=== PATIENT | male | born 1980 | race Two or more races ===

== ENCOUNTER 2025-07-09 15:21 | Emergency (ER) | payer MEDICAID, OTHER ==
[~2025-07-09] VITALS: Ht 170.2 cm; Wt 65.0 kg
--- NOTE | 2025-07-09 16:19 | ED.PDOC ---
History of Present Illness HPI Comments 44-year-old male, with a history of CAD, HTN and UT status post angiogram, presents with chief complaint of right-sided chest pain upon inspiration x2 days. Denies any shortness of breath, nausea, vomiting, or further acute symptoms. No endorsed recent ailments, injuries, stressors, strenuous activities, or further pertinent history or events. Chief Complaint: Chest Pain Time Seen by MD: 15:50 Reviewed Notes: Nurses Notes, Medications, Allergies Allergies: Coded Allergies: NO KNOWN ALLERGIES (Unverified , 07/09/25) Information Source: Patient Mode of Arrival: Ambulatory Severity: Moderate Past Medical History PAST MEDICAL HISTORY: CAD, HTN, UT Surgical History (Other): Angiogram Family History Family History: Unknown Social History Smoker: Non-Smoker Alcohol: Denies ETOH Use Drugs: Denies Drug Use Lives In: Home All Other Systems: Reviewed and Negative (Comprehensive review of systems are negative unless otherwise stated in HPI) Physical Exam General Appearance: Moderate Distress HEENT: Normal ENT Inspection, Pharynx Normal, TMs Normal Neck: Full Range of Motion, Non-Tender, Normal, Normal Inspection Respiratory: Chest Non-Tender, Lungs Clear, No Accessory Muscle Use, No Respiratory Distress, Normal Breath Sounds Cardiovascular: No Edema, No JVD, No Murmur, No Gallop, Normal Peripheral Pulses, Regular Rate/Rhythm Breast Exam: Deferred Gastrointestinal: No Organomegaly, Non Tender, No Pulsatile Mass, Normal Bowel Sounds, Soft Genitalia: Deferred Pelvic: Deferred Rectal: Deferred Extremities: No calf tenderness, Normal capillary refill, Normal inspection, Normal range of motion, Non-tender, No pedal edema Musculoskeletal : Apperance: Normal Neurologic: Alert, seedling puller II-XII nml as Tested, No Motor Deficits, Normal Affect, Normal Mood, No Sensory Deficits Cerebellar Function: Normal Reflexes: Normal Skin: Dry, Normal Color, Warm Peripheral Pulses: 3+ Radial (R), 3+ Radial (L) Lymphatic: No Adenopathy Was a procedure done? Was a procedure done?: No EKG EKG #1: Pulse Rate (adult): 80 [place]: Normal Cardiac Rhythm: NSR Block: None Hypertrophy: None ST: Normal EKG #2: Pulse Rate (adult): 77 [place]: Normal Cardiac Rhythm: NSR Block: None Hypertrophy: None ST: Normal Differential Dx Considerations may include: Mi, PE, ACS, CAD, URI, PNA, angina, anxiety, gastritis, among others X-Ray, Labs, Meds, VS Vital Signs Date Time Temp Pulse Resp B/P (MAP) Pulse Ox O2 Delivery O2 Flow Rate FiO2 07/09/25 16:41 77 07/09/25 16:31 77 07/09/25 16:19 80 07/09/25 15:30 80 07/09/25 15:23 97.4 79 18 146/107 98 97.4 Lab Test 07/09/25 16:23 Range/Units White Blood Count 6.9 4.4-10.8 10^3/uL Red Blood Count 5.30 4.5-5.90 10^6/uL Hemoglobin 16.0 13.5-17.5 g/dL Hematocrit 47.1 41.0-53.0 % Mean Corpuscular Volume 88.9 80.0-100.0 fL Mean Corpuscular Hemoglobin 30.2 28.0-32.0 pg Mean Corpuscular Hemoglobin Concent 34.0 32.0-36.0 g/dL Red Cell Distribution Width 13.5 11.8-14.3 % Platelet Count 301 140-450 10^3/uL Mean Platelet Volume 6.8 L 6.9-10.8 fL Neutrophils (%) (Auto) 71.7 37.0-80.0 % Lymphocytes (%) (Auto) 19.2 10.0-50.0 % Monocytes (%) (Auto) 7.5 0.0-12.0 % Eosinophils (%) (Auto) 0.8 0.0-7.0 % Basophils (%) (Auto) 0.8 0.0-2.0 % Neutrophils # (Auto) 4.9 1.6-8.6 10 ^3/uL Lymphocytes # (Auto) 1.3 0.4-5.4 10 ^3/uL Monocytes # (Auto) 0.5 0-1.3 10 ^3/uL Eosinophils # (Auto) 0.1 0-0.8 10 ^3/uL Basophils # (Auto) 0.1 0-0.2 10 ^3/uL Nucleated Red Blood Cells 0.0 % Sodium Level 144 136-145 mmol/L Potassium Level 4.0 3.5-5.1 mmol/L Chloride Level 106 98-107 mmol/L Carbon Dioxide Level 29 20-31 mmol/L Anion Gap 9 5-15 Blood Urea Nitrogen 7 L 9-23 mg/dL Creatinine 1.15 0.700-1.30 mg/dL Glomerular Filtration Rate Calc 79 >90 mL/min BUN/Creatinine Ratio 6.1 L 10.0-20.0 Serum Glucose 98 74-106 mg/dL Calcium Level 9.2 8.7-10.4 mg/dL Troponin I High Sensitivity < 3 L </=54 ng/L B-Type Natriuretic Peptide 2.62 0-100 pg/mL Patient alert. Complaining of chest pain. Vitals stable. Answering questions. History of coronary artery disease. EKG reviewed does not show any acute changes. Cardiac marker within normal limits. Continues to have pain. Was given aspirin. Was given nitro. Explained to the patient. Continue monitoring. Time of 1ST Reevaluation: 16:20 Reevaluation 1ST: Unchanged Patient Education/Counseling: Diagnosis, Treatment, Need For Follow Up Family Education/Counseling: No Family Present SEPSIS Sepsis Screen Date sepsis recognized/suspect: Jul 09, 2025 Time Sepsis recognized/suspect: 1523 Recent Procedure: No On Antibiotic Therapy: No Respiratory Rate >20: No Heart Rate >90: No Temp<36 C (96.8 F) or >38.3 C: No SBP <90 or MAP <65 mmHG: No New Acute Mental Status Change: No Is the patient on CPAP, BIPAP,: No Physician Orders Chest Portable (07/09/25 15:57) Troponin-I Hs (07/09/25 15:25) Electrocardigram (07/09/25 15:25) Troponin-I Hs (07/09/25 16:25) Electrocardigram (07/09/25 16:25) Electrocardigram (07/09/25 18:25) Vital Signs Date Time Temp Pulse Resp B/P (MAP) Pulse Ox O2 Delivery O2 Flow Rate FiO2 07/09/25 16:41 77 07/09/25 16:31 77 07/09/25 16:19 80 07/09/25 15:30 80 07/09/25 15:23 97.4 79 18 146/107 98 97.4 Laboratory Tests Test 07/09/25 16:23 White Blood Count 6.9 10^3/uL (4.4-10.8) Departure 1 Departure Time of Disposition: 16:56 Impression: Primary Impression: Chest pain of unknown etiology Disposition: 09 ADMITTED INPATIENT Admit to: Tele Condition: Guarded Critical Care Note Critical Care Time?: No Stability Stability form required: No Heart Score Heart Score: Heart Score Response (Comments) Value History Highly Suspicious 2 EKG Normal 0 Age 45-64 1 Risk Factors >3 or Hx ASHD 2 Troponin Normal limit 0 Total 5 I personally scribed for BENJAMIN ARMSTRONG MD ([email or web address]) on 07/09/25 at 16:19. Electronically submitted by Brody Vogt ([email or web address]). I personally scribed for BENJAMIN ARMSTRONG MD ([email or web address]) on 07/09/25 at 16:41. Electronically submitted by Brody Vogt ([email or web address]). BENJAMIN ARMSTRONG MD Jul 09, 2025 16:19
--- NOTE | 2025-07-09 16:23 | DVH ---
CHEST RADIOGRAPH Indication: CP Technique: Single frontal view of the chest was obtained Comparison: None FINDINGS: Lines and Tubes: None Lungs: No focal consolidation. Pleura: No effusion. No pneumothorax. Cardiomediastinal contours: Unremarkable Bones: No acute osseous abnormality. IMPRESSION: 1. No acute cardiopulmonary disease.
[2025-07-09 16:35] LABS: Hematocrit 47.1 % (41.0-53.0); Hemoglobin 16.0 g/dL (13.5-17.5); Mean Corpuscular Hemoglobin 30.2 pg (28.0-32.0); Mean Corpuscular Volume 88.9 fL (80.0-100.0); Nucleated Red Blood Cells % 0.0 %
[2025-07-09 16:46] LABS: Anion Gap 9 (5-15); Carbon Dioxide 29 mmol/L (20-31); Chloride 106 mmol/L (98-107); Potassium 4.0 mmol/L (3.5-5.1); Sodium 144 mmol/L (136-145)
[2025-07-09 16:47] LABS: Calcium 9.2 mg/dL (8.7-10.4)
[2025-07-09 16:52] LABS: BUN/Creatinine Ratio 6.1 (10.0-20.0); Blood Urea Nitrogen 7 mg/dL (9-23); Glucose 98 mg/dL (74-106)
[2025-07-09 16:57] VITALS: BP 143/92; PULSE 85; RESP 16; TEMP 97.8; O2SAT 98
[2025-07-09] MEDS ORDERED: NITROGLYCERIN 0.4 MG SL TAB SL ONE (17:00)
--- NOTE | 2025-07-09 18:37 | ECG ---
[facility] Test Date: 2025-07-09 Test Time: 16:31:55 Pat Name: LEIDA RICHARD Department: [facility] ED Patient ID: [facility]-[id number] Room: Gender: M Biological Science Technician: LOPEZ : 1980 Requested By: BENJAMIN ARMSTRONG Order Number: [id number] Reading MD: Jean-Claude Guerra Measurements Intervals [place] Rate: 77 P: 55 OR: 160 QRS: 26 QRSD: 98 T: -40 QT: 366 QTc: 415 Interpretive Statements Sinus rhythm Nonspecific T abnormalities, lateral leads Electronically Signed On 07-12-2025 13:31:52 PST by Jean-Claude Guerra Please click the below link to view image of tracing.
--- NOTE | 2025-07-12 13:31 | ECG ---
[facility] Test Date: 2025-07-09 Test Time: 15:30:39 Pat Name: LEIDA RICHARD Department: Room: Gender: M Alteration Specialist: JESUS : 1980 Requested By: BENJAMIN ARMSTRONG Order Number: [id number] Reading MD: Jean-Claude Guerra Measurements Intervals [place] Rate: 80 P: 47 CT: 154 QRS: 32 QRSD: 94 T: -42 QT: 351 QTc: 405 Interpretive Statements Sinus rhythm Nonspecific T abnormalities, inferior leads Borderline ST elevation, anterior leads Electronically Signed On 07-12-2025 13:31:50 PST by Jean-Claude Guerra Please click the below link to view image of tracing.
== END 2025-07-09 18:41 | disposition left against medical advice (07) ==
LOC: ER 15:21
DX: R07.89 Other chest pain (principal); I10 Essential (primary) hypertension; I25.10 Atherosclerotic heart disease of native coronary artery without angina pectoris; I25.2 Old myocardial infarction
CPT/HCPCS: 36415; 71045; 80048; 83880; 84484; 85025; 93005